=== PATIENT | male | born 1930 | race African-American/Black ===

== ENCOUNTER 2019-07-25 23:07 | Inpatient (IN) | payer OTHER ==
[~2019-07-25] VITALS: Ht 180.3 cm; Wt 90.7 kg
[2019-07-25 23:40] LABS: BASOPHILS % 0.6 % (0.0-2.0); EOSINOPHILS % 5.5 % (0.0-5.0); HEMATOCRIT. 40.2 % (42.0-52.0); LYMPHOCYTES % 32.5 % (20.0-50.0); MEAN CORPUSCULAR HEMOGLOBIN 31.5 pg (28.0-32.0); MEAN CORPUSCULAR VOLUME 90.8 fL (80.0-94.0); MEAN PLATELET VOLUME 7.4 fl (7.4-10.4); MONOCYTES % 9.6 % (2.0-8.0); NEUTROPHILS % 51.8 % (40.0-76.0); PLATELET 209 x1000/uL (130-400); RED BLOOD CELL COUNT 4.43 mill/uL (4.7-6.1); RED CELL DISTRIBUTION WIDTH 13.5 % (11.6-14.6)
[2019-07-25 23:41] LABS: CHLORIDE 109 mEq/L (98-107)
[2019-07-25 23:44] LABS: INR 1.1; PARTIAL THROMBOPLASTIN TIME 26.4 sec (23.4-31.0); PROTHROMBIN TIME 10.9 sec (9.6-11.0)
[2019-07-25] MEDS ORDERED: MANNITOL 12.5G (25%) VIAL 50ML IV ONE (23:45)
[2019-07-25] MEDS ORDERED: LEVETIRACETAM 500MG PREMIX 100 ML IV ONE (23:45)
[2019-07-25] MEDS ORDERED: DEXAMETHASONE 10 MG/ML VIAL IV ONE (23:45)
[2019-07-25 23:47] LABS: LDL CHOLESTEROL 49 mg/dL (5-100)
[2019-07-25 23:50] LABS: ETHANOL BLOOD < 10 mg/dL
[2019-07-26] VITALS (59 sets, daily range): BP systolic 99–157; BP diastolic 29–104
[2019-07-26 04:28] LABS: CLARITY URINE CLEAR (CLEAR); COLOR URINE YELLOW (YELLOW); KETONES URINE TRACE (NEGATIVE); LEUKOCYTE ESTERASE URINE NEGATIVE (NEGATIVE); NITRITE URINE NEGATIVE (NEGATIVE); OCCULT BLOOD URINE NEGATIVE (NEGATIVE); PROTEIN URINE NEGATIVE (NEGATIVE); SPECIFIC GRAVITY URINE 1.026 (1.005-1.030); UROBILINOGEN URINE 0.2 E.U./dL (0.2-1.0)
[2019-07-26 04:37] LABS: *AMPHETAMINES SCREEN URINE NEGATIVE (NEGATIVE); *BARBITURATES SCREEN URINE NEGATIVE (NEGATIVE); *BENZODIAZEPINES SCREEN URINE NEGATIVE (NEGATIVE); *COCAINE SCREEN URINE NEGATIVE (NEGATIVE); METHADONE URINE SCREEN NEGATIVE (NEGATIVE); OPIATES URINE SCREEN NEGATIVE (NEGATIVE)
[2019-07-26 04:38] LABS: CANNABINOID URINE SCREEN NEGATIVE (NEGATIVE); PHENCYCLIDINE URINE SCREEN NEGATIVE (NEGATIVE)
[2019-07-26] MEDS: NICARDIPINE 100 MG in SODIUM CHLORIDE 0.9% 60 ML IV PRN ×2 (07:52→16:26)
[2019-07-26] MEDS ORDERED: LEVETIRACETAM 500MG PREMIX 100 ML IV SCH (09:00)
[2019-07-26] MEDS: LEVETIRACETAM 500MG in SODIUM CHLORIDE 0.9% 100ML IV SCH ×2 (10:49→20:59)
[2019-07-26] MEDS: DEXT 5%/LACTATED RINGERS 1,000 ML IV SCH (10:49)
[2019-07-26] MEDS: FAMOTIDINE 20MG/2ML VIAL IV SCH (12:12)
[2019-07-26] MEDS: DEXAMETHASONE 4MG/ML 1ML VIAL IV SCH ×2 (12:12→18:00)
[2019-07-26] MEDS ORDERED: BENA10TA12 PO (14:02)
[2019-07-26] MEDS ORDERED: TAMS-11 PO (14:02)
[2019-07-26] MEDS ORDERED: FLAVONOID PO (14:02)
[2019-07-26] MEDS ORDERED: DIPH-684 PO (14:02)
[2019-07-26] MEDS ORDERED: CHARCOAL PO ×2 (14:02)
[2019-07-26] MEDS ORDERED: FIBER CHOICE (14:02)
[2019-07-26] MEDS ORDERED: SIME125C PO (14:02)
[2019-07-26] MEDS ORDERED: MV,1TABL8 PO (14:02)
[2019-07-26] MEDS ORDERED: CLOP75TA33 PO (14:02)
[2019-07-26] MEDS ORDERED: DONE5TAB33 PO (14:02)
[2019-07-26] MEDS ORDERED: ATOR40TA70 PO (14:02)
[2019-07-26] MEDS ORDERED: TURM538C PO (14:02)
[2019-07-26] MEDS ORDERED: NICARDIPINE 100 MG in SODIUM CHLORIDE 0.9% 60 ML IV PRN (15:00)
[2019-07-27] VITALS (91 sets, daily range): BP systolic 98–147; BP diastolic 48–97
[2019-07-27] MEDS: DEXAMETHASONE 4MG/ML 1ML VIAL IV SCH ×2 (00:55→06:28)
[2019-07-27] MEDS: NICARDIPINE 100 MG in SODIUM CHLORIDE 0.9% 60 ML IV PRN ×2 (02:31→14:31)
[2019-07-27] MEDS: DEXT 5%/LACTATED RINGERS 1,000 ML IV SCH (06:29)
[2019-07-27] MEDS: FAMOTIDINE 20MG/2ML VIAL IV SCH (09:10)
[2019-07-27] MEDS: LEVETIRACETAM 500MG in SODIUM CHLORIDE 0.9% 100ML IV SCH ×2 (09:10→21:05)
[2019-07-28] VITALS (91 sets, daily range): BP systolic 110–167; BP diastolic 51–100
[2019-07-28] MEDS: DEXT 5%/LACTATED RINGERS 1,000 ML IV SCH ×2 (01:08→19:39)
[2019-07-28] MEDS: NICARDIPINE 100 MG in SODIUM CHLORIDE 0.9% 60 ML IV PRN (01:29)
[2019-07-28 06:17] LABS: HEMATOCRIT. 39.3 % (42.0-52.0); HEMOGLOBIN. 13.5 g/dL (14.0-18.0); MEAN CORPUSCULAR HEMOGLOBIN 31.5 pg (28.0-32.0); MEAN CORPUSCULAR VOLUME 91.9 fL (80.0-94.0); MEAN PLATELET VOLUME 7.8 fl (7.4-10.4); PLATELET 223 x1000/uL (130-400); RED BLOOD CELL COUNT 4.28 mill/uL (4.7-6.1); RED CELL DISTRIBUTION WIDTH 13.5 % (11.6-14.6)
[2019-07-28 06:25] LABS: CHLORIDE 111 mEq/L (98-107)
[2019-07-28] MEDS: DEXAMETHASONE 4MG/ML 1ML VIAL IV SCH (08:09)
[2019-07-28] MEDS: LEVETIRACETAM 500MG in SODIUM CHLORIDE 0.9% 100ML IV SCH ×2 (08:09→23:24)
[2019-07-28] MEDS: FAMOTIDINE 20MG/2ML VIAL IV SCH (08:09)
[2019-07-28 10:12] LABS: PLATELET ESTIMATE NORMAL
[2019-07-28] MEDS ORDERED: ACETAMINOPHEN 325MG TABLET PO PRN (14:00)
[2019-07-28] MEDS ORDERED: ACETAMINOPHEN 650MG SUPP PR PRN (14:00)
[2019-07-28] MEDS ORDERED: DIPHENHYDRAMINE 50MG/ML VIAL IV PRN (14:00)
[2019-07-28] MEDS ORDERED: LACTULOSE 20G/30ML UDC PO PRN (14:00)
[2019-07-28] MEDS ORDERED: ONDANSETRON HCL 4MG/2ML INJ IV PRN (14:00)
[2019-07-28 15:03] LABS: BG BASE EXCESS -4.4 mmol/L (-2.0-2.0); BG CARBOXYHEMOGLOBIN 0.9 % (0.5-1.5); BG DEOXYHEMOGLOBIN 6.7 % (0.0-5.0); BG FRACTION INSPIRED OXYGEN 21; BG METHEMOGLOBIN 0.2 % (0.0-1.5); BG OXYGEN SATURATION 93.2 % (92.0-98.5); BG OXYHEMOGLOBIN 92.2 % (94.0-97.0); BG PCO2 34.7 mmHg (35.0-45.0); BG PH 7.378 (7.350-7.450); BG PO2 69.5 mmHg (75.0-100.0); BG SAMPLE SITE LEFT RADIAL; BG TOTAL HEMOGLOBIN 14.3 g/dL (12.0-18.0); BG VENT MODE ROOM AIR
[2019-07-28] MEDS: HYDRALAZINE 20MG/ML VIAL IV PRN (15:24)
[2019-07-29] VITALS (91 sets, daily range): BP systolic 101–187; BP diastolic 33–124
[2019-07-29] MEDS: NICARDIPINE 100 MG in SODIUM CHLORIDE 0.9% 60 ML IV PRN ×3 (01:05→23:46)
[2019-07-29 05:44] LABS: HEMATOCRIT 41.4 % (42.0-52.0); HEMOGLOBIN 14.2 g/dL (14.0-18.0); MEAN CORPUSCULAR HEMOGLOBIN 31.4 pg (28.0-32.0); MEAN CORPUSCULAR VOLUME 91.4 fL (80.0-94.0); PLATELET 226 x1000/uL (130-400); RED BLOOD CELL COUNT 4.53 mill/uL (4.7-6.1); RED CELL DISTRIBUTION WIDTH 13.6 % (11.6-14.6)
[2019-07-29 06:05] LABS: T4 FREE 1.41 ng/dL (0.76-1.46)
[2019-07-29] MEDS: HYDRALAZINE 20MG/ML VIAL IV PRN ×2 (07:21→21:24)
[2019-07-29] MEDS: MORPHINE SULFATE 2 MG/ML CPJ (NOT FOR IM USE) IV PRN ×3 (07:56→17:21)
[2019-07-29] MEDS: DEXAMETHASONE 4MG/ML 1ML VIAL IV SCH (08:43)
[2019-07-29] MEDS: FAMOTIDINE 20MG/2ML VIAL IV SCH (08:43)
[2019-07-29] MEDS: LEVETIRACETAM 500MG in SODIUM CHLORIDE 0.9% 100ML IV SCH ×3 (08:43→21:22)
[2019-07-29] MEDS: DEXT 5%/LACTATED RINGERS 1,000 ML IV SCH (12:59)
[2019-07-29] MEDS: PANTOPRAZOLE SODIUM 40 MG/VIAL IV SCH (14:38)
[2019-07-29] MEDS ORDERED: METOPROLOL TARTRATE 5MG/5ML VIAL IV PRN (15:15)
[2019-07-29] MEDS: NITROGLYCERIN OINT 1GM/INCH UDPKT TD SCH (15:58)
[2019-07-29 17:32] LABS: CLARITY URINE CLOUDY (CLEAR); COLOR URINE YELLOW (YELLOW); KETONES URINE NEGATIVE (NEGATIVE); LEUKOCYTE ESTERASE URINE NEGATIVE (NEGATIVE); NITRITE URINE NEGATIVE (NEGATIVE); OCCULT BLOOD URINE TRACE (NEGATIVE); PROTEIN URINE NEGATIVE (NEGATIVE); SPECIFIC GRAVITY URINE 1.016 (1.005-1.030); UROBILINOGEN URINE 0.2 E.U./dL (0.2-1.0)
[2019-07-29] MEDS ORDERED: LEVOFLOXACIN 500MG PREMIX 100 ML IV SCH (18:00)
[2019-07-29] MEDS: IPRATROPIUM/ALBUTEROL 0.5-3(2.5)MG/3ML NEB HHN SCH (20:53)
[2019-07-30] VITALS (81 sets, daily range): BP systolic 103–159; BP diastolic 44–107
[2019-07-30] MEDS: PANTOPRAZOLE SODIUM 40 MG/VIAL IV SCH ×2 (00:32→08:32)
[2019-07-30] MEDS: NITROGLYCERIN OINT 1GM/INCH UDPKT TD SCH ×5 (00:33→23:16)
[2019-07-30] MEDS: DEXT 5%/LACTATED RINGERS 1,000 ML IV SCH (00:33)
[2019-07-30] MEDS: MORPHINE SULFATE 2 MG/ML CPJ (NOT FOR IM USE) IV PRN (02:04)
[2019-07-30] MEDS: IPRATROPIUM/ALBUTEROL 0.5-3(2.5)MG/3ML NEB HHN SCH ×4 (02:24→20:43)
[2019-07-30] MEDS: HYDRALAZINE 20MG/ML VIAL IV PRN ×2 (03:10→21:23)
[2019-07-30 05:45] LABS: CHLORIDE 114 mEq/L (98-107)
[2019-07-30 05:48] LABS: HEMATOCRIT. 39.1 % (42.0-52.0); HEMOGLOBIN. 13.2 g/dL (14.0-18.0); MEAN CORPUSCULAR HEMOGLOBIN 31.2 pg (28.0-32.0); MEAN CORPUSCULAR VOLUME 92.4 fL (80.0-94.0); MEAN PLATELET VOLUME 7.8 fl (7.4-10.4); PLATELET 223 x1000/uL (130-400); RED BLOOD CELL COUNT 4.23 mill/uL (4.7-6.1); RED CELL DISTRIBUTION WIDTH 13.5 % (11.6-14.6)
[2019-07-30 05:50] LABS: INR 1.2; PARTIAL THROMBOPLASTIN TIME 25.5 sec (23.4-31.0); PROTHROMBIN TIME 12.1 sec (9.6-11.0)
[2019-07-30] MEDS ORDERED: CEFAZOLIN 1000MG PREMIX 50 ML IV SCH (08:00)
[2019-07-30] MEDS: DEXAMETHASONE 4MG/ML 1ML VIAL IV SCH (08:31)
[2019-07-30] MEDS: LEVETIRACETAM 500MG in SODIUM CHLORIDE 0.9% 100ML IV SCH ×2 (08:32→20:27)
[2019-07-30] MEDS ORDERED: FENTANYL CITRATE/PF 50MCG/ML 2ML VIAL ONE (10:55)
[2019-07-30] MEDS ORDERED: MIDAZOLAM HCL 5 MG/5 ML VIAL ONE (10:55)
[2019-07-30] MEDS ORDERED: MIDAZOLAM HCL 2 MG/2 ML VIAL IV PRN (11:13)
[2019-07-30] MEDS ORDERED: FENTANYL CITRATE/PF 50MCG/ML 2ML VIAL IV PRN (11:14)
[2019-07-30 13:11] LABS: PLATELET ESTIMATE NORMAL
[2019-07-30] MEDS: NICARDIPINE 100 MG in SODIUM CHLORIDE 0.9% 60 ML IV PRN (13:11)
[2019-07-30] MEDS: AMLODIPINE 5MG TABLET GT SCH (15:20)
[2019-07-30] MEDS: TAMSULOSIN HCL 0.4MG SR CAPSULE PO SCH (15:20)
[2019-07-30] MEDS: BENAZEPRIL 10MG TABLET PO SCH (15:21)
[2019-07-30] MEDS: LEVOFLOXACIN 250MG PREMIX 50 ML IV SCH (17:58)
[2019-07-30] MEDS: DONEPEZIL HCL 5MG TABLET PO SCH (20:27)
[2019-07-30] MEDS: METOPROLOL TARTRATE 50MG TABLET PO SCH (20:28)
[2019-07-30] MEDS: ATORVASTATIN CALCIUM 40MG TABLET PO SCH (21:24)
[2019-07-30] MEDS: HYDRALAZINE HCL 50MG TABLET GT SCH (21:24)
[2019-07-30] MEDS ORDERED: NICARDIPINE 100 MG in SODIUM CHLORIDE 0.9% 60 ML IV PRN (22:30)
[2019-07-31] VITALS (69 sets, daily range): BP systolic 90–172; BP diastolic 27–98
[2019-07-31] MEDS: IPRATROPIUM/ALBUTEROL 0.5-3(2.5)MG/3ML NEB HHN SCH ×4 (02:22→20:26)
[2019-07-31] MEDS: HYDRALAZINE 20MG/ML VIAL IV PRN (03:41)
[2019-07-31 05:19] LABS: HEMATOCRIT 38.7 % (42.0-52.0); MEAN CORPUSCULAR VOLUME 92.2 fL (80.0-94.0); PLATELET 200 x1000/uL (130-400); RED CELL DISTRIBUTION WIDTH 13.9 % (11.6-14.6)
[2019-07-31 05:30] LABS: CHLORIDE 118 mEq/L (98-107)
[2019-07-31] MEDS: HYDRALAZINE HCL 50MG TABLET GT SCH (05:41)
[2019-07-31] MEDS: NITROGLYCERIN OINT 1GM/INCH UDPKT TD SCH ×3 (05:41→17:56)
[2019-07-31] MEDS: LEVETIRACETAM 500MG in SODIUM CHLORIDE 0.9% 100ML IV SCH ×2 (09:32→21:05)
[2019-07-31] MEDS: AMLODIPINE 5MG TABLET GT SCH (09:33)
[2019-07-31] MEDS: METOPROLOL TARTRATE 50MG TABLET PO SCH (09:33)
[2019-07-31] MEDS: TAMSULOSIN HCL 0.4MG SR CAPSULE PO SCH (09:33)
[2019-07-31] MEDS: BENAZEPRIL 10MG TABLET PO SCH (09:33)
[2019-07-31] MEDS: MULTIVITAMINS,THER W-MINERALS TABLET PO SCH (09:33)
[2019-07-31] MEDS: PREDNISONE 20MG TABLET PO SCH (09:34)
[2019-07-31] MEDS ORDERED: AMLODIPINE 5MG TABLET PO STA (11:25)
[2019-07-31] MEDS ORDERED: METOPROLOL TARTRATE 50MG TABLET PO STA (11:26)
[2019-07-31] MEDS ORDERED: HYDRALAZINE 20MG/ML VIAL IV STA (11:27)
[2019-07-31] MEDS ORDERED: HYDRALAZINE 20MG/ML VIAL IV PRN (13:30)
[2019-07-31] MEDS: LEVOFLOXACIN 250MG PREMIX 50 ML IV SCH (17:48)
[2019-07-31] MEDS: DONEPEZIL HCL 5MG TABLET PO SCH (20:44)
[2019-07-31] MEDS: METOPROLOL TARTRATE 100MG TABLET PO SCH (20:46)
[2019-07-31] MEDS: ATORVASTATIN CALCIUM 40MG TABLET PO SCH (20:46)
[2019-07-31] MEDS: HYDRALAZINE HCL 100MG TABLET GT SCH (21:07)
[2019-08-01] VITALS: BP 139/80
[2019-08-01] MEDS: NITROGLYCERIN OINT 1GM/INCH UDPKT TD SCH ×4 (00:58→16:53)
[2019-08-01] MEDS: IPRATROPIUM/ALBUTEROL 0.5-3(2.5)MG/3ML NEB HHN SCH ×4 (02:26→21:15)
[2019-08-01 04:00] VITALS: BP 144/63
[2019-08-01] MEDS: HYDRALAZINE HCL 100MG TABLET GT SCH ×4 (06:00→23:06)
[2019-08-01 07:56] LABS: HEMOGLOBIN 13.3 g/dL (14.0-18.0); MEAN CORPUSCULAR HEMOGLOBIN 30.6 pg (28.0-32.0); MEAN CORPUSCULAR VOLUME 92.2 fL (80.0-94.0); PLATELET 178 x1000/uL (130-400); RED BLOOD CELL COUNT 4.34 mill/uL (4.7-6.1); RED CELL DISTRIBUTION WIDTH 13.9 % (11.6-14.6)
[2019-08-01 08:15] LABS: CHLORIDE 118 mEq/L (98-107)
[2019-08-01] MEDS: AMLODIPINE 10MG TABLET GT SCH (08:37)
[2019-08-01] MEDS: BENAZEPRIL 10MG TABLET PO SCH (08:37)
[2019-08-01] MEDS: TAMSULOSIN HCL 0.4MG SR CAPSULE PO SCH (08:37)
[2019-08-01] MEDS: METOPROLOL TARTRATE 100MG TABLET PO SCH ×2 (08:38→22:05)
[2019-08-01] MEDS: PREDNISONE 20MG TABLET PO SCH (08:38)
[2019-08-01] MEDS: DOCUSATE SODIUM SUGAR FREE 100MG/10ML UDC GT SCH (08:38)
[2019-08-01] MEDS: MULTIVITAMINS,THER W-MINERALS TABLET PO SCH (08:49)
[2019-08-01] MEDS: LEVETIRACETAM 500MG in SODIUM CHLORIDE 0.9% 100ML IV SCH ×2 (10:27→22:04)
[2019-08-01 12:00] VITALS: BP 156/78
[2019-08-01 16:00] VITALS: BP 164/72
[2019-08-01] MEDS: LEVOFLOXACIN 250MG PREMIX 50 ML IV SCH (16:54)
[2019-08-01 20:00] VITALS: BP 152/74
[2019-08-01] MEDS: DONEPEZIL HCL 5MG TABLET PO SCH (22:04)
[2019-08-01] MEDS: ATORVASTATIN CALCIUM 40MG TABLET PO SCH (22:05)
[2019-08-02] VITALS: BP 167/77
[2019-08-02] MEDS: NITROGLYCERIN OINT 1GM/INCH UDPKT TD SCH ×2 (00:39→06:24)
[2019-08-02] MEDS: IPRATROPIUM/ALBUTEROL 0.5-3(2.5)MG/3ML NEB HHN SCH ×2 (01:41→09:26)
[2019-08-02 04:00] VITALS: BP 158/70
[2019-08-02] MEDS: HYDRALAZINE HCL 100MG TABLET GT SCH (06:24)
[2019-08-02 07:17] LABS: HEMATOCRIT 41.6 % (42.0-52.0); MEAN CORPUSCULAR HEMOGLOBIN 31.1 pg (28.0-32.0); MEAN CORPUSCULAR VOLUME 92.4 fL (80.0-94.0); PLATELET 176 x1000/uL (130-400); RED CELL DISTRIBUTION WIDTH 13.8 % (11.6-14.6)
[2019-08-02 07:20] LABS: CHLORIDE 118 mEq/L (98-107)
[2019-08-02 08:00] VITALS: BP 146/98
[2019-08-02] MEDS ORDERED: PREDNISONE 20MG TABLET PO SCH (09:00)
[2019-08-02] MEDS: LEVETIRACETAM 500MG in SODIUM CHLORIDE 0.9% 100ML IV SCH (09:15)
[2019-08-02] MEDS: DOCUSATE SODIUM SUGAR FREE 100MG/10ML UDC GT SCH (09:15)
[2019-08-02] MEDS: AMLODIPINE 10MG TABLET GT SCH (09:16)
[2019-08-02] MEDS: METOPROLOL TARTRATE 100MG TABLET PO SCH (09:16)
[2019-08-02] MEDS: BENAZEPRIL 10MG TABLET PO SCH (09:16)
[2019-08-02] MEDS: MULTIVITAMINS,THER W-MINERALS TABLET PO SCH (09:17)
[2019-08-02] MEDS: TAMSULOSIN HCL 0.4MG SR CAPSULE PO SCH (09:17)
[2019-08-02 11:00] VITALS: BP 145/98
[2019-08-03] MEDS ORDERED: BENAZEPRIL 10MG TABLET PO SCH (09:00)
[2019-08-06] MEDS ORDERED: PREDNISONE 10MG TABLET PO SCH (09:00)
== END 2019-08-02 11:30 | DRG 65 ==
LOC: ER 23:07 → EDBEDREQTM 07-26 01:06 → EDBEDREQDT 07-26 01:06 → EDBEDREQ 07-26 01:06 → EDBEDREQSVC 07-26 01:06 → ENRESERV 07-26 07:18 → MICUNO 07-26 08:11 → 8WST 07-31 17:36
PROVIDERS: ADMIT Internal Medicine; ATTEND Internal Medicine
PROC: 0DH63UZ Insertion of Feeding Device into Stomach, Percutaneous Approach (ICD-10-PCS; principal; 2019-07-30)
DX: I61.0 Nontraumatic intracerebral hemorrhage in hemisphere, subcortical (principal); R47.01 Aphasia; I69.354 Hemiplegia and hemiparesis following cerebral infarction affecting left non-dominant side; G93.40 Encephalopathy, unspecified; E87.0 Hyperosmolality and hypernatremia; E46 Unspecified protein-calorie malnutrition; I10 Essential (primary) hypertension; N40.0 Benign prostatic hyperplasia without lower urinary tract symptoms; D64.9 Anemia, unspecified; D72.829 Elevated white blood cell count, unspecified; T38.0X5A Adverse effect of glucocorticoids and synthetic analogues, initial encounter; Y92.89 Other specified places as the place of occurrence of the external cause; R13.12 Dysphagia, oropharyngeal phase; Z68.27 Body mass index [BMI] 27.0-27.9, adult
CPT/HCPCS: 36415; 36600; 71045; 74176; 80048; 80305; 80320; 81003; 82375; 82805; 83036; 83605; 83721; 84153; 84439; 84443; 84484; 85027; 92610; 93005; 94640; 96365; 97162; 97167; 99291; C9113; J0360; J0690; J1100; J1953; J1956; J2150; J2250; J2270; J3010; J3490; J7050; J7512; J7620; G0103; G0480